=== PATIENT | female | born 1960 | race American Indian/Alaskan Native ===

== ENCOUNTER 2020-12-20 01:50 | Observation (INO) | payer MEDICAID, OTHER ==
[2020-12-20] MEDS ORDERED: ONDANSETRON 4 MG/2 ML INJ IV ONE (02:22)
[2020-12-20] MEDS ORDERED: MORPHINE 4 MG/1 ML INJ IV ONE ×2 (02:22→05:13)
--- NOTE | 2020-12-20 02:29 | Emergency Department Report ---
HPI - General Chief Complaint: Abdominal Pain Time Seen by Provider: 12/20/20 02:14 - HPI HPI: This is a 60-year-old female presents to the emergency department with complaint of generalized abdominal pain that has been going on for the past week. The pa scott had abdominal surgery for hernia, and apparently for an ulcer, 2 weeks ago in [place]. She has moved to [place] in the interim. She has been having abdominal pain since she ran out of her pain medication that she was prescribed after the surgery. The abdominal pain worsens with any palpation or movement and she currently rates it at 10 out of 10 in intensity. She denies any nausea, vomiting, constipation, diarrhea, dysuria, vaginal bleeding or discharge. The patient has a past medical history of CHF, COPD on 2 L oxygen via nasal cannula, CVA x2 with some residual right-sided weakness, coronary artery disease with previous MA, hypertension, and atrial fibrillation on Eliquis. She also has a surgical history of gastric bypass, hysterectomy, along with this hernia repair. ED Past Medical Hx - Past Medical History Previous Medical History?: Yes Hx Hypertension: Yes Hx CVA: Yes (X2) Hx Heart Attack/AMI: Yes Hx Congestive Heart Failure: Yes Hx COPD: Yes Additional medical history: Atrial Fib - Surgical History Past Surgical History?: Yes Additional Surgical History: Gastric bypass, Hysterectomy, Hernia repair - Social History Smoking Status: Current Every Day Smoker Substance Use Type: None ED Review of Systems ROS: Stated complaint: ABD PAIN Other details as noted in HPI Comment: All other systems reviewed and negative Constitutional: denies: chills, fever Eyes: denies: eye pain, vision change ENT: denies: ear pain, throat pain Respiratory: denies: cough, shortness of breath Cardiovascular: denies: chest pain, palpitations Gastrointestinal: abdominal pain. denies: vomiting Genitourinary: denies: dysuria, discharge Musculoskeletal: denies: back pain, arthralgia Skin: denies: rash, lesions Neurological: denies: headache, weakness Physical Exam - Physical Exam Vital Signs: Vital Signs 12/20/20 12/20/20 12/20/20 02:02 02:05 02:15 Temperature 98.2 F Pulse Rate 92 H 92 H Respiratory 34 H 33 H Rate Blood Pressure 160/92 O2 Sat by Pulse 100 100 Oximetry General: GENERAL: The patient is well-developed well-nourished. HENT: Normocephalic. Atraumatic. Patient has moist mucous membranes. EYES: Extraocular motions are intact. NECK: Supple. Trachea is midline. CHEST/LUNGS: Clear to auscultation. There is no respiratory distress noted. HEART/CARDIOVASCULAR: Regular. There is no tachycardia. There is no murmur. ABDOMEN: Abdomen is soft. There is generalized abdominal tenderness to palpation. No guarding. Patient has normal bowel sounds. There is mild abdominal distention. SKIN: Skin is warm and dry. NEURO: The patient is awake, alert, and oriented. The patient is cooperative. The patient has no focal neurologic deficits. Normal speech. MUSCULOSKELETAL: There is no tenderness or deformity. There is no limitation range of motion. ED Course Vital Signs 12/20/20 12/20/20 12/20/20 02:02 02:05 02:15 Temperature 98.2 F Pulse Rate 92 H 92 H Respiratory 34 H 33 H Rate Blood Pressure 160/92 O2 Sat by Pulse 100 100 Oximetry - Consultations Consultation #1: 12/20/20 05:24 I spoke to the general surgeon on-call, Dr. Lam, regarding the patient's presentation, lab results and CT imaging results. She has agreed to see the patient as a consult. She would like the patient to be nothing by mouth, to receive some empiric antibiotics, to have an abdominal ultrasound for better evaluation of the gallbladder, and for the patient to be admitted to the hospitalist service. ED Medical Decision Making - Lab Data Result diagrams: 12/20/20 02:19 12/20/20 02:19 Lab Results 12/20/20 12/20/20 Range/Units 02:19 02:19 WBC 8.8 (4.5-11.0) K/mm3 RBC 4.14 (3.65-5.03) M/mm3 Hgb 9.1 L (10.1-14.3) gm/dl Hct 29.2 L (30.3-42.9) % MCV 71 L (79-97) fl MCH 22 L (28-32) pg MCHC 31 (30-34) % RDW 21.7 H (13.2-15.2) % Plt Count 354 (140-440) K/mm3 Lymph % (Auto) 15.5 (13.4-35.0) % [place] % (Auto) 8.4 H (0.0-7.3) % Eos % (Auto) 0.2 (0.0-4.3) % Baso % (Auto) 0.9 (0.0-1.8) % Lymph # (Auto) 1.4 (1.2-5.4) K/mm3 [place] # (Auto) 0.7 (0.0-0.8) K/mm3 Eos # (Auto) 0.0 (0.0-0.4) K/mm3 Baso # (Auto) 0.1 (0.0-0.1) K/mm3 Seg Neutrophils % 75.0 H (40.0-70.0) % Seg Neutrophils # 6.6 (1.8-7.7) K/mm3 Sodium 138 (137-145) mmol/L Potassium 3.5 L (3.6-5.0) mmol/L Chloride 103.0 (98-107) mmol/L Carbon Dioxide 24 (22-30) mmol/L Anion Gap 15 mmol/L BUN 10 (7-17) mg/dL Creatinine 0.4 L (0.6-1.2) mg/dL Estimated GFR > 60 ml/min BUN/Creatinine Ratio 25 % Glucose 105 H (65-100) mg/dL Calcium 8.9 (8.4-10.2) mg/dL Total Bilirubin 1.00 (0.1-1.2) mg/dL Direct Bilirubin 0.3 H (0-0.2) mg/dL Indirect Bilirubin 0.7 mg/dL AST 12 (5-40) units/L ALT 6 L (7-56) units/L Alkaline Phosphatase 78 (35-129) units/L Total Protein 5.8 L (6.3-8.2) g/dL Albumin 3.8 L (3.9-5) g/dL Albumin/Globulin Ratio 1.9 % Lipase 13 (13-60) units/L - Radiology Data Radiology results: report reviewed, image reviewed interpreted by me: Abdominal x-ray shows nonspecific nonobstructive bowel gas. There is increased stool volume. No free air. CT abdomen pelvis wo con INDICATION: Abd pain, hernia and "ulcer" surgery 2 weeks ago. COMPARISON: None TECHNIQUE: Abdominal and pelvic CT exam performed. All CT scans at this location are performed using CT dose reduction for ALARA by means of automated exposure control. FINDINGS: CT ABDOMEN and PELVIS: Lung Bases: Cardiomegaly. Bibasilar atelectasis. Liver: No significant abnormality. Biliary: Gallstones are present. Gallbladder is dilated and there is mild gallbladder wall thickening. Spleen: No significant abnormality. Pancreas: No significant abnormality. Adrenals: No significant abnormality. Kidneys: No significant abnormality. Lymphatics: No lymphadenopathy. Vasculature: No significant abnormality. Bowel: Prior Liban-en-Y gastric bypass. Appendix is nonvisualized. However, no inflammatory changes in the right lower quadrant to suggest appendicitis. Pelvis: Uterus is surgically absent. Osseous Structures: No aggressive osseous lesion. Additional Findings: Mild ascites. Postoperative changes from ventral abdominal wall hernia repair. IMPRESSION: 1. No definite acute findings. Cholelithiasis with mild gallbladder wall thickening which is indeterminate but is thought to be related to congestion/etiology of the ascites. Can correlate clinically for evidence cholecystitis. 2. Cardiomegaly and small volume of ascites. - Medical Decision Making This patient presents to the emergency department with some generalized abdominal pain and she is about 2 weeks postop from a hernia repair that was done in [place]. She has generalized abdominal tenderness to palpation. There is mild abdominal distention. Labs have been mostly unremarkable including CBC, CMP and lipase, except for some mild anemia with a hemoglobin of 9.1 that does not require transfusion. Patient was given some IV analgesia and IV antiemetics without much relief. A CT scan of the abdomen and pelvis without contrast was done secondary to an iodine allergy. This shows cholelithiasis with some concern for cholecystitis, as well as some mild abdominal ascites. General surgery has been contacted and consulted. Patient will be admitted to the hospitalist service and was accepted for admission by Dr. Pantoja. Critical Care Time: No Critical care attestation.: If time is entered above; I have spent that time in minutes in the direct care of this critically ill patient, excluding procedure time. ED Disposition Clinical Impression: Intractable abdominal pain Ascites Qualifiers: Ascites type: other type Qualified Code(s): R18.8 - Other ascites Cholelithiasis Qualifiers: Cholelithiasis location: gallbladder Cholecystitis presence: with cholecystitis Cholecystitis acuity: acute Biliary obstruction: without biliary obstruction Qualified Code(s): K80.00 - Calculus of gallbladder with acute cholecystitis without obstruction Disposition: DC-09 OP ADMIT IP TO THIS HOSP Is pt being admited?: Yes Condition: Fair Instructions: Abdominal Pain (ED) Referrals: PRIMARY CARE, [Primary Care Provider] - 3-5 Days Time of Disposition: 05:15
[2020-12-20 02:58] LABS: Alanine Aminotransferase 6 units/L (7-56); Albumin 3.8 g/dL (3.9-5); Bilirubin,Direct 0.3 mg/dL (0-0.2); Blood Urea Nitrogen 10 mg/dL (7-17); Calcium 8.9 mg/dL (8.4-10.2); Hemolysis Index 1
[2020-12-20 02:59] LABS: Basophils # (Auto) 0.1 K/mm3 (0.0-0.1); Basophils % (Auto) 0.9 % (0.0-1.8); Eosinophils % (Auto) 0.2 % (0.0-4.3); Hematocrit 29.2 % (30.3-42.9); Hemoglobin 9.1 gm/dl (10.1-14.3); Lymphocytes # (Auto) 1.4 K/mm3 (1.2-5.4); Lymphocytes % (Auto) 15.5 % (13.4-35.0); Mean Corpuscular HGB Conc 31 % (30-34); Mean Corpuscular Volume 71 fl (79-97); Monocytes # (Auto) 0.7 K/mm3 (0.0-0.8); Monocytes % (Auto) 8.4 % (0.0-7.3); Platelet Count 354 K/mm3 (140-440); Red Blood Count 4.14 M/mm3 (3.65-5.03)
[2020-12-20 03:01] LABS: BUN/Creatinine Ratio 25; Red Cell Distribution Width 21.7 % (13.2-15.2)
--- NOTE | 2020-12-20 03:18 | XRay Report ---
XR abdomen 2V INDICATION / CLINICAL INFORMATION: Abd pain. COMPARISON: None available. FINDINGS: TUBES / LINES: None. BOWEL GAS PATTERN: Nonobstructive bowel gas pattern. FREE AIR / EXTRALUMINAL GAS: None seen. ADDITIONAL FINDINGS: Postoperative clips are seen along the abdomen. No definite stones. IMPRESSION: 1. Moderate quantity of stool with nonobstructive bowel gas pattern. Signer Name: Marshall Acevedo MD Signed: 12/20/2020 3:13 AM Workstation Name: [id number]
--- NOTE | 2020-12-20 04:55 | Cat Scan Report ---
CT abdomen pelvis wo con INDICATION: Abd pain, hernia and "ulcer" surgery 2 weeks ago. COMPARISON: None TECHNIQUE: Abdominal and pelvic CT exam performed. All CT scans at this location are performed using CT dose reduction for ALARA by means of automated exposure control. FINDINGS: CT ABDOMEN and PELVIS: Lung Bases: Cardiomegaly. Bibasilar atelectasis. Liver: No significant abnormality. Biliary: Gallstones are present. Gallbladder is dilated and there is mild gallbladder wall thickening . Spleen: No significant abnormality. Pancreas: No significant abnormality. Adrenals: No significant abnormality. Kidneys: No significant abnormality. Lymphatics: No lymphadenopathy. Vasculature: No significant abnormality. Bowel: Prior Liban-en-Y gastric bypass. Appendix is nonvisualized. However, no inflammatory changes in the right lower quadrant to suggest appendicitis. Pelvis: Uterus is surgically absent. Osseous Structures: No aggressive osseous lesion. Additional Findings: Mild ascites. Postoperative changes from ventral abdominal wall hernia repair. IMPRESSION: 1. No definite acute findings. Cholelithiasis with mild gallbladder wall thickening which is indeterm inate but is thought to be related to congestion/etiology of the ascites. Can correlate clinically fo r evidence cholecystitis. 2. Cardiomegaly and small volume of ascites. Signer Name: Marshall Acevedo MD Signed: 12/20/2020 4:51 AM Workstation Name: [id number]
[2020-12-20] MEDS ORDERED: PIPERACIL/TAZOBACTA 4.5/NS 100 4.5 GM/100 ML VIAL IV ONE (05:14)
[2020-12-20] MEDS ORDERED: MAGNESIUM HYDROXIDE (MOM) ORAL LIQD UDC PO PRN (05:38)
[2020-12-20] MEDS ORDERED: ACETAMINOPHEN 325 MG TAB PO PRN (05:38)
--- NOTE | 2020-12-20 05:47 | History and Physical Report ---
History of Present Illness Date of examination: 12/20/20 Date of admission: 12/20/20 05:15 Chief complaint: Abdominal Pain History of present illness: 60 year old female with known history of hypertension, Afib,COPD and CVA seen in the Emergency room today complaining of generalized abdominal pain which has been ongoing for about a week. Patient had abdominal suregry for hernia and ulcer in [place] about 2 weeks ago. She is currently living in [place]. She apparently ran out of her pain medications that was prescribed after surgery. Abdominal pain is currently rated about 10/10 in severity. Gets worse on movements. Patient denies any fever or chills, nausea and vomiting, no constipation or diarrhea no hematuria or dysuria, denies any vaginal bleeding or discharge. Work-up in the emergency room today reveals: 1. No definite acute findings. Cholelithiasis with mild gallbladder wall thickening which is indeterminate but is thought to be related to congestion/etiology of the ascites. Can correlate clinically for evidence cholecystitis. 2. Cardiomegaly and small volume of ascites. General surgeon has been consulted for evaluation by the ER physician. Past History Past Medical History: atrial fib, heart failure, hypertension, stroke (X2) Past Surgical History: hysterectomy, hernia repair, Other (Gastric Bypass) Social history: smoking (Current daily smoker) Family history: no significant family history Medications and Allergies Allergies Allergy/AdvReac Type Severity Reaction Status Date / Time iodine Allergy Hives Verified 12/20/20 02:05 nitroglycerin Allergy Hives Verified 12/20/20 02:05 NSAIDS (Non-Steroidal Allergy Hives Verified 12/20/20 02:05 Anti-Inflamma Active Meds: Active Medications Acetaminophen (Acetaminophen 325 Mg Tab) 650 mg PO Q4H PRN PRN Reason: Pain MILD(1-3)/Fever >100.5/SHIPLEY Sodium Chloride (Nacl 0.9% 1000 Ml) 1,000 mls @ 125 mls/hr IV DIRECT JOSH Morphine Sulfate (Morphine 2 Mg/1 Ml Inj) 2 mg IV Q4H PRN PRN Reason: Pain, Moderate (4-6) Ondansetron HCl (Ondansetron 4 Mg/2 Ml Inj) 4 mg IV Q8H PRN PRN Reason: Nausea And Vomiting Pantoprazole Sodium (Pantoprazole 40 Mg Inj) 40 mg IV BID JOSH Sodium Chloride (Sodium Chloride 0.9% 10 Ml Flush Syringe) 10 ml IV BID JOSH Sodium Chloride (Sodium Chloride 0.9% 10 Ml Flush Syringe) 10 ml IV PRN PRN PRN Reason: LINE FLUSH Review of Systems Constitutional: no fever, no chills Ears, nose, mouth and throat: no nasal congestion, no sore throat Cardiovascular: no chest pain, no palpitations Respiratory: no cough, no shortness of breath Gastrointestinal: abdominal pain, no nausea, no vomiting, no diarrhea Genitourinary Female: no pelvic pain, no flank pain, no dysuria, no hematuria Musculoskeletal: no neck pain, no low back pain Integumentary: no rash, no pruritis Neurological: no headaches, no confusion Psychiatric: no anxiety, no depression Exam - Constitutional Vitals: Temp Pulse Resp BP Pulse Ox 98.2 F 117 H 18 170/124 97 12/20/20 02:05 12/20/20 05:31 12/20/20 05:31 12/20/20 05:31 12/20/20 05:31 General appearance: Present: no acute distress, well-nourished - EENT Eyes: Present: PERRL, EOM intact. Absent: scleral icterus ENT: hearing intact, clear oral mucosa, dentition normal - Neck Neck: Present: supple, normal ROM - Respiratory Respiratory effort: normal Respiratory: bilateral: CTA - Cardiovascular Rhythm: regular Heart Sounds: Present: S1 & S2. Absent: gallop, systolic murmur, diastolic murmur, rub, click - Extremities Extremities: no ischemia, pulses intact, pulses symmetrical, No edema, normal temperature, normal color, Full ROM Peripheral Pulses: within normal limits - Abdominal General gastrointestinal: Present: soft, tender, non-distended, normal bowel sounds, other (Multiple scars of old surgery). Absent: mass - Integumentary Integumentary: Present: clear, warm, dry. Absent: rash - Musculoskeletal Musculoskeletal: strength equal bilaterally - Psychiatric Psychiatric: appropriate mood/affect, intact judgment & insight, memory intact, cooperative - Neurologic Neurologic: CNII-XII intact, no focal deficits, moves all extremities Results - Labs CBC & Chem 7: 12/20/20 02:19 12/20/20 02:19 Labs: Abnormal lab results 12/20/20 12/20/20 Range/Units 02:19 02:19 Hgb 9.1 L (10.1-14.3) gm/dl Hct 29.2 L (30.3-42.9) % MCV 71 L (79-97) fl MCH 22 L (28-32) pg RDW 21.7 H (13.2-15.2) % [place] % (Auto) 8.4 H (0.0-7.3) % Seg Neutrophils % 75.0 H (40.0-70.0) % Potassium 3.5 L (3.6-5.0) mmol/L Creatinine 0.4 L (0.6-1.2) mg/dL Glucose 105 H (65-100) mg/dL Direct Bilirubin 0.3 H (0-0.2) mg/dL ALT 6 L (7-56) units/L Total Protein 5.8 L (6.3-8.2) g/dL Albumin 3.8 L (3.9-5) g/dL Assessment and Plan - Patient Problems (1) Intractable abdominal pain Current Visit: Yes Status: Acute Plan to address problem: Possibly secondary to cholelithiasis versus cholecystitis. Patient made n.p.o. and started on empiric IV antibiotics, IV analgesic medication. We await further evaluation by general surgery. Dr. Lam has been consulted. (2) Hypertension Current Visit: Yes Status: Acute Plan to address problem: We will place patient on IV antihypertensive for blood pressure control. We will monitor vital signs closely. (3) DVT prophylaxis Current Visit: Yes Status: Acute Plan to address problem: Patient placed on sequential compression device (4) Full code status Current Visit: Yes Status: Acute Plan to address problem: Patient is a full code
[2020-12-20] MEDS ORDERED: hydrALAZINE 20 MG/1 ML INJ IV PRN (06:20)
--- NOTE | 2020-12-20 06:59 | Ultrasound Report ---
US abdomen limited INDICATION: Abd pain, Cholelithias vs cholecystitis COMPARISON: CT dated same day FINDINGS: Pancreas: No significant abnormality identified in the visualized portions of the pancreas. Abdominal aorta: No significant abnormality. IVC: Normal. Liver: No significant abnormality. Gallbladder: Gallstones are present within the gallbladder. No gallbladder wall thickening or pericho lecystic fluid. Bile ducts: The common bile duct measures 3 mm. Additional findings: No significant additional findings. IMPRESSION: Cholelithiasis without other sonographic evidence of cholecystitis. Signer Name: Marshlal Acevedo MD Signed: 12/20/2020 6:55 AM Workstation Name: [id number]
--- NOTE | 2020-12-20 09:12 | Consultation ---
History of Present Illness Consult date: 12/20/20 Reason for consult: abdominal pain Chief complaint: abdominal pain - History of present illness History of present illness: 60 yo M with hx of Afib, PUD, CVA who presents to ER with abdominal pain for the last 2 weeks. Patient states she recently moved to [facility] from [place]. She had abdominal surgery 2 weeks ago in [place]. She states she had ulcer surgery for a bleeding ulcer and an abdominal hernia repair. She states surgery was laparoscopic and the ulcer was "clamped". She has a hx of exlap in the past but does not remember why. Since the hernia surgery was performed, she has been having diffuse sharp abdominal pain. When asked to locate the pain, she points to her outer abdomen. Pain is worse with movement. It is alleviated with pain medications. She states that since she ran out of pain medication last week, she has been having increasing pain. Pain medication administered in ER has given her some relief. She has had a poor appetite since surgery but has been tolerating a diet. No n/v. No f/c. No cp, sob. She is having BMs and urinating without difficulty. She states she was not on opiate pain medication prior to surgery but does take gabapentin for stroke. She has not had follow up with her surgeon. She is asking for juice. I spoke with the patient sister Suzy @ [phone] with the patient's permission. She states that the patient has been homeless in [place] and has been having ongoing medical issues. She states that she has been at multiple hospitals in [place] about 15 times between the months of November and December 2020. She states that most recently patient was admitted to a hospital in [place] for perforated gastric ulcer for which she underwent emergent surgery. She states that the patient has a history of a gastric bypass and was told that she had ulcer disease secondary to continuing tobacco abuse. Apparently the ulcer was patched. She is unaware that hernia repair was performed at the same time. She states that the patient has had multiple strokes and does not walk due to multiple falls. She is confined to a wheelchair. She states that she has a defibrillator and her heart function is 10%. When she was last seen on Saturday, the patient seemed okay however then started to have abdominal pain. She relocated her sister to [place] as this is where Suzy lives in order to assist her with obtaining housing and other services. Past History Past Medical History: atrial fib, heart failure, hypertension, stroke (X2) Past Surgical History: hysterectomy, hernia repair, Other (Gastric bypass. Surgery for gastic ulcer perforation. Exlap ?indication - pt does not recall) Social history: smoking (Current daily smoker) Family history: no significant family history Medications and Allergies Allergies Allergy/AdvReac Type Severity Reaction Status Date / Time iodine Allergy Hives Verified 12/20/20 02:05 nitroglycerin Allergy Hives Verified 12/20/20 02:05 NSAIDS (Non-Steroidal Allergy Hives Verified 12/20/20 02:05 Anti-Inflamma Home Medications Medication Instructions Recorded Confirmed Last Taken Type No Known Home Medications [No 12/20/20 12/20/20 Unknown History Reported Home Medications] Active Meds: Active Medications Acetaminophen (Acetaminophen 325 Mg Tab) 650 mg PO Q4H PRN PRN Reason: Pain MILD(1-3)/Fever >100.5/SHIPLEY Hydralazine HCl (Hydralazine 20 Mg/1 Ml Inj) 10 mg IV Q4HR PRN PRN Reason: Blood Pressure Last Admin: 12/20/20 06:35 Dose: 10 mg Documented by: Sodium Chloride (Nacl 0.9% 1000 Ml) 1,000 mls @ 75 mls/hr IV DIRECT JOSH Piperacillin Sod/Tazobactam Sod (Zosyn/Ns 4.5gm/100ml) 4.5 gm in 100 mls @ 200 mls/hr IV Q8H JOSH; Protocol Magnesium Hydroxide (Magnesium Hydroxide (Mom) Oral Liqd Udc) 30 ml PO Q4H PRN PRN Reason: Constipation Morphine Sulfate (Morphine 2 Mg/1 Ml Inj) 2 mg IV Q4H PRN PRN Reason: Pain, Moderate (4-6) Ondansetron HCl (Ondansetron 4 Mg/2 Ml Inj) 4 mg IV Q8H PRN PRN Reason: Nausea And Vomiting Pantoprazole Sodium (Pantoprazole 40 Mg Inj) 40 mg IV BID JOSH Sodium Chloride (Sodium Chloride 0.9% 10 Ml Flush Syringe) 10 ml IV BID JOSH Sodium Chloride (Sodium Chloride 0.9% 10 Ml Flush Syringe) 10 ml IV PRN PRN PRN Reason: LINE FLUSH Review of Systems All systems: negative (10 pt ros performed and negative except for that listed in HPI) Exam Vital Signs Pulse Resp Pulse Ox 92 H 34 H 100 12/20/20 02:02 12/20/20 02:02 12/20/20 02:02 Narrative exam: Gen: AAOx3. NAD ENT: no scleral icterus or conjunctival pallor CV: s1, S2+ Resp: even and unlabored Abd: soft, ND, + TTP in 4 quadrants, outer abdomen. No r/r/g. Multiple well healed surgical scars Ext: no c/c/e Results - Labs 12/20/20 02:19 12/20/20 02:19 Abnormal lab results 12/20/20 12/20/20 Range/Units 02:19 02:19 Hgb 9.1 L (10.1-14.3) gm/dl Hct 29.2 L (30.3-42.9) % MCV 71 L (79-97) fl MCH 22 L (28-32) pg RDW 21.7 H (13.2-15.2) % [facility] % (Auto) 8.4 H (0.0-7.3) % Seg Neutrophils % 75.0 H (40.0-70.0) % Potassium 3.5 L (3.6-5.0) mmol/L Creatinine 0.4 L (0.6-1.2) mg/dL Glucose 105 H (65-100) mg/dL Direct Bilirubin 0.3 H (0-0.2) mg/dL ALT 6 L (7-56) units/L Total Protein 5.8 L (6.3-8.2) g/dL Albumin 3.8 L (3.9-5) g/dL Diabetes panel 12/20/20 Range/Units 02:19 Sodium 138 (137-145) mmol/L Potassium 3.5 L (3.6-5.0) mmol/L Chloride 103.0 (98-107) mmol/L Carbon Dioxide 24 (22-30) mmol/L BUN 10 (7-17) mg/dL Creatinine 0.4 L (0.6-1.2) mg/dL Glucose 105 H (65-100) mg/dL Calcium 8.9 (8.4-10.2) mg/dL AST 12 (5-40) units/L ALT 6 L (7-56) units/L Alkaline Phosphatase 78 (35-129) units/L Total Protein 5.8 L (6.3-8.2) g/dL Albumin 3.8 L (3.9-5) g/dL Calcium panel 12/20/20 Range/Units 02:19 Calcium 8.9 (8.4-10.2) mg/dL Albumin 3.8 L (3.9-5) g/dL Pituitary panel 12/20/20 Range/Units 02:19 Sodium 138 (137-145) mmol/L Potassium 3.5 L (3.6-5.0) mmol/L Chloride 103.0 (98-107) mmol/L Carbon Dioxide 24 (22-30) mmol/L BUN 10 (7-17) mg/dL Creatinine 0.4 L (0.6-1.2) mg/dL Glucose 105 H (65-100) mg/dL Calcium 8.9 (8.4-10.2) mg/dL Adrenal panel 12/20/20 Range/Units 02:19 Sodium 138 (137-145) mmol/L Potassium 3.5 L (3.6-5.0) mmol/L Chloride 103.0 (98-107) mmol/L Carbon Dioxide 24 (22-30) mmol/L BUN 10 (7-17) mg/dL Creatinine 0.4 L (0.6-1.2) mg/dL Glucose 105 H (65-100) mg/dL Calcium 8.9 (8.4-10.2) mg/dL Total Bilirubin 1.00 (0.1-1.2) mg/dL AST 12 (5-40) units/L ALT 6 L (7-56) units/L Alkaline Phosphatase 78 (35-129) units/L Total Protein 5.8 L (6.3-8.2) g/dL Albumin 3.8 L (3.9-5) g/dL - Imaging Abdominal x-ray: report reviewed, image reviewed CT scan - abdomen: report reviewed, image reviewed CT scan - pelvis: report reviewed, image reviewed US - abdomen: report reviewed, image reviewed Assessment and Plan 60 yo F with abdominal pain, cholelithiasis 1. hx gastric ulcer perforation 2 weeks ago with 2. hx gastric bypass 3. tobacco abuse CT scan A/P - Abd u/s - cholelithasis without cholecytitis or biliary ductal dilatation Pt stable. Plan: 1. Prn pain control 2. Will obtain UGI to evaluate repair 3. NPO, CLD for lunch pending UGI results 4. abdominal binder continuous 5. PPI BID 6. smoking cessation discussed with patient 7. February dc abx - no evidence of cholecystitis 8. social work lecturer consult 9. Obtain records from patient's [place] and [place] [facility] Plan discussed with patient and her sister. All questions answered. Thank you for this consultation. Please call with any questions or concerns. Evaluation and treatment of this patient was during the time of the national and state emergency arising from COVID19 coronavirus pandemic. Treatment and procedures performed meet the current and available best practice and guidelines for patient during the COVID pandemic.
[2020-12-20] MEDS: PANTOPRAZOLE 40 MG INJ IV SCH ×2 (09:23→21:54)
[2020-12-20] MEDS: MORPHINE 2 MG/1 ML INJ IV PRN ×3 (09:24→19:36)
[2020-12-20] MEDS ORDERED: PIPERACIL/TAZOBACTA 4.5/NS 100 4.5 GM/100 ML VIAL IV SCH (14:00)
[2020-12-20] MEDS: NICOTINE 21 MG/24 HR PATCH TD SCH (14:33)
[2020-12-20] MEDS: SUCRALFATE 1 GM/10 ML ORAL LIQD PO SCH ×3 (14:33→23:43)
[2020-12-20] MEDS: SODIUM CHLORIDE 0.9% 1000 ML 1,000 ML IV SCH ×2 (14:33→19:41)
--- NOTE | 2020-12-20 14:46 | Fluoroscopy Report ---
Upper GI examination without air with KUB INDICATION: History of gastric ulcer repair approximately 2 weeks ago. Patient also has remote history of gastric bypass.. COMPARISON: CT abdomen/pelvis performed 12/21/2019 FINDINGS: KUB obtained prior to upper GI showed surgical clips in the left upper quadrant consistent with histo ry of gastric bypass. Numerous clips in the abdominal wall are also noted consistent with history of abdominal wall hernia repair. No dilated loops of bowel or free air were noted. The patient was not given Gastrografin due to history of iodine allergy. The patient was given thin b arium to drink. She was somewhat uncooperative and would not drink but a few sips of the contrast. Due to the history of gastric bypass, gas crystals were not utilized. Barium flowed freely through the esophagus into the stomach. The stomach emptied rapidly into the pro ximal small bowel. There was no extravasation of contrast from the stomach or visualized proximal sma ll bowel. No evidence of gastric obstruction or gastroparesis. Additional overhead views of the stoma ch were obtained which provided no additional information. Fluoroscopy time: 0.7 minutes. Fluoroscopic images: 6. IMPRESSION: 1. No evidence of visible abnormality within the stomach or proximal small bowel. No evidence of extr avasation of contrast or gastric obstruction. Signer Name: Alicia Goins MD Signed: 12/20/2020 2:41 PM Workstation Name: [id number]
[2020-12-20] MEDS: ONDANSETRON 4 MG/2 ML INJ IV PRN ×3 (14:47→23:43)
[2020-12-20 17:46] LABS: Bacteria,Urine 1+ /HPF (Negative); Bilirubin,Urine NEG (Negative); Blood,Urine NEG (Negative); Color,Urine Yellow (Yellow); Protein,Urine <15 mg/dL mg/dL (Negative); Urobilinogen,Urine < 2.0 mg/dL (<2.0)
[2020-12-20] MEDS: HYDROmorphone 1 MG/1 ML INJ IV PRN (23:39)
[2020-12-21] MEDS: HYDROmorphone 1 MG/1 ML INJ IV PRN ×2 (04:07→11:26)
[2020-12-21] MEDS: SUCRALFATE 1 GM/10 ML ORAL LIQD PO SCH ×2 (07:17→11:27)
[2020-12-21 07:20] LABS: Basophils # (Auto) 0.1 K/mm3 (0.0-0.1); Basophils % (Auto) 1.3 % (0.0-1.8); Eosinophils # (Auto) 0.1 K/mm3 (0.0-0.4); Eosinophils % (Auto) 1.2 % (0.0-4.3); Hematocrit 24.1 % (30.3-42.9); Hemoglobin 7.7 gm/dl (10.1-14.3); Lymphocytes # (Auto) 1.3 K/mm3 (1.2-5.4); Lymphocytes % (Auto) 17.5 % (13.4-35.0); Mean Corpuscular HGB Conc 32 % (30-34); Mean Corpuscular Volume 71 fl (79-97); Monocytes # (Auto) 0.7 K/mm3 (0.0-0.8); Monocytes % (Auto) 9.4 % (0.0-7.3); Platelet Count 289 K/mm3 (140-440); Red Blood Count 3.42 M/mm3 (3.65-5.03)
[2020-12-21 07:25] LABS: Red Cell Distribution Width 20.8 % (13.2-15.2)
[2020-12-21 07:31] LABS: INR 1.13 (0.87-1.13)
[2020-12-21 07:34] LABS: Blood Urea Nitrogen 9 mg/dL (7-17); Calcium 8.6 mg/dL (8.4-10.2); Hemolysis Index 9
[2020-12-21 07:43] VITALS: BP 140/91
[2020-12-21] MEDS: PANTOPRAZOLE 40 MG INJ IV SCH (07:56)
[2020-12-21 07:58] LABS: BUN/Creatinine Ratio 18
[2020-12-21] MEDS: MORPHINE 2 MG/1 ML INJ IV PRN (07:58)
[2020-12-21] MEDS: NICOTINE 21 MG/24 HR PATCH TD SCH (07:59)
[2020-12-21] MEDS ORDERED: oxyCODONE /ACETAMINOPHEN 5-325MG TAB PO PRN (10:36)
--- NOTE | 2020-12-21 12:36 | Progress Note ---
Assessment and Plan 60 yo F with abdominal pain, cholelithiasis 1. hx gastric ulcer perforation 2 weeks ago, recent hernia repair 2. hx gastric bypass 3. tobacco abuse UGI series - negative for obstruction, leak. Pt stable. Afebrile. Nick diet. Chronic pain likely secondary to ulcer disease Plan: 1. Prn pain control - percocet PO + dilaudid IV for breakthrough pain. Patient's pain is complex, chronic. Will likely need pain management consult upon dc 2. adv to FLD, soft diet for dinner 3. abdominal binder continuous 4. PPI BID, carafate ACHS 5. smoking cessation discussed with patient 6. Obtain records from patient's hospitalization and surgery in [facility] 7. Please resume home meds - will defer to hospitalist service. 8. bowel regimen No acute surgical intervention indicated Thank you for this consultation. Please call with any questions or concerns. Evaluation and treatment of this patient was during the time of the national and state emergency arising from COVID19 coronavirus pandemic. Treatment and procedures performed meet the current and available best practice and guidelines for patient during the COVID pandemic. Subjective Date of service: 12/21/20 Narrative: Pt seen and examined. C/o sharp pain in LUQ and mid abdomen. States again that s he has been having this pain for over 1 month and it is unchanged. She is tolerating CLD and asking for something more substantial. No f/c. She is urinating. NO BM. Objective Vital Signs - 12hr 12/21/20 12/21/20 12/21/20 04:07 04:37 05:12 Temperature 98.5 F Pulse Rate 84 Respiratory 17 17 18 Rate Blood Pressure 128/78 O2 Sat by Pulse 99 Oximetry 12/21/20 07:27 Temperature 98.6 F Pulse Rate 86 Respiratory 18 Rate Blood Pressure 140/91 O2 Sat by Pulse 98 Oximetry - General physical appearance Narrative Exam: Gen.: Awake, alert, oriented 3. Tearful, same as yesterday. ENT: Trachea midline. No lymphadenopathy. No scleral icterus or conjunctival pallor CV: S1, S2 present Respiratory: No audible wheezes Abdomen: Soft, nondistended, positive tenderness to palpation in the left upper quadrant. No rebound, rigidity, guarding. Multiple well-healed surgical scars Extremities: No clubbing, cyanosis, edema - Labs 12/21/20 06:49 12/21/20 06:49 Diabetes panel 12/21/20 Range/Units 06:49 Sodium 137 (137-145) mmol/L Potassium 3.4 L (3.6-5.0) mmol/L Chloride 104.0 (98-107) mmol/L Carbon Dioxide 25 (22-30) mmol/L BUN 9 (7-17) mg/dL Creatinine 0.5 L (0.6-1.2) mg/dL Glucose 95 (65-100) mg/dL Calcium 8.6 (8.4-10.2) mg/dL Calcium panel 12/21/20 Range/Units 06:49 Calcium 8.6 (8.4-10.2) mg/dL Pituitary panel 12/21/20 Range/Units 06:49 Sodium 137 (137-145) mmol/L Potassium 3.4 L (3.6-5.0) mmol/L Chloride 104.0 (98-107) mmol/L Carbon Dioxide 25 (22-30) mmol/L BUN 9 (7-17) mg/dL Creatinine 0.5 L (0.6-1.2) mg/dL Glucose 95 (65-100) mg/dL Calcium 8.6 (8.4-10.2) mg/dL Adrenal panel 12/21/20 Range/Units 06:49 Sodium 137 (137-145) mmol/L Potassium 3.4 L (3.6-5.0) mmol/L Chloride 104.0 (98-107) mmol/L Carbon Dioxide 25 (22-30) mmol/L BUN 9 (7-17) mg/dL Creatinine 0.5 L (0.6-1.2) mg/dL Glucose 95 (65-100) mg/dL Calcium 8.6 (8.4-10.2) mg/dL
--- NOTE | 2020-12-21 12:50 | Discharge Summary ---
Providers - Providers Date of Admission: 12/20/20 05:15 Attending physician: JACOBO RICHARD 12/20/20 05:13 Consult to Physician [CONS] Routine Comment: Consulting Provider: KELTON HOFFMANN Physician Instructions: Reason For Exam: Abdominal pain. Cholelithiasis versus cholecystit 12/20/20 10:40 Consult to Case Management [CONS] Routine Services Needed at Discharge: Police Guard Notified:: n/a Additional Physician Instructions: May call sister Suzy at [phone] for additional information. Patient is homeless. 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
[2020-12-21] MEDS ORDERED: POLYETHYLENE GLYCOL 3350 17 GM POWDER PO SCH (13:00)
[2020-12-21] MEDS ORDERED: DOCUSATE SODIUM 100 MG CAP PO SCH (13:00)
[2020-12-21] MEDS ORDERED: GABAPENTIN 300 MG CAP PO SCH (14:00)
[2020-12-21] MEDS ORDERED: GABAPENTIN 400 MG CAP PO SCH (14:00)
[2020-12-21] MEDS ORDERED: DICYCLOMINE 10 MG CAP PO SCH (14:00)
[2020-12-21] MEDS ORDERED: SUCRALFATE 1 GM TAB PO SCH (16:30)
[2020-12-21] MEDS ORDERED: PANTOPRAZOLE 40 MG TAB PO SCH (16:30)
== END 2020-12-21 16:30 | disposition home or self-care (01) ==
LOC: ED 01:50 → 3B 05:15
PROVIDERS: ADMIT Internal Medicine Geriatric Medicine; ATTEND Internal Medicine
DX: K80.00 Calculus of gallbladder with acute cholecystitis without obstruction (principal); R18.8 Other ascites; I11.0 Hypertensive heart disease with heart failure; I50.9 Heart failure, unspecified; I48.91 Unspecified atrial fibrillation; K27.9 Peptic ulcer, site unspecified, unspecified as acute or chronic, without hemorrhage or perforation; J44.9 Chronic obstructive pulmonary disease, unspecified; F17.210 Nicotine dependence, cigarettes, uncomplicated; Z86.73 Personal history of transient ischemic attack (TIA), and cerebral infarction without residual deficits; Z90.710 Acquired absence of both cervix and uterus; Z98.890 Other specified postprocedural states; Z98.84 Bariatric surgery status
CPT/HCPCS: 36415; 74019; 74176; 74240; 76705; 80048; 80076; 81001; 82962; 83690; 85025; 85610; 96361; 96365; 96375; 96376; 99285; 99406; C9113; G0378; J0360; J1170; J2270; J2405; J2543; J7030